=== PATIENT | female | born 1995 | race American Indian/Alaskan Native ===

== ENCOUNTER 2018-07-13 20:47 | Emergency (ER) | payer BC, OTHER ==
--- NOTE | 2018-07-13 21:47 | Emergency Department Report ---
Blank Doc - Documentation Documentation: This is a 22-year-old female that presents with rash with allergic reaction. Patient stated had hives and ZAYRA but is now resolving. Patient also has cough with sore throat. Exam: no hives present. No angioedema. Speaking in full sentences with no signs of distress noted. Uvula midline. No swelling. 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 This initial assessment/diagnostic orders/clinical plan/treatment(s) is/are subject to change based on patient's health status, clinical progression and re- assessment by fellow clinical providers in the ED. Further treatment and workup at subsequent clinical providers discretion. Patient/guardians urged not to elope from the ED as their condition may be serious if not clinically assessed and managed. Initial orders include: 1- Patient sent to [facility] for further evaluation and treatment
[2018-07-13 21:49] VITALS: BP 116/63
--- NOTE | 2018-07-13 22:42 | XRay Report ---
PROCEDURE: XR CHEST ROUTINE 2V TECHNIQUE: Chest radiograph, frontal and lateral views. HISTORY: cough COMPARISONS: None currently available. FINDINGS: Cardiac silhouette is within normal limits. There is no effusion. There is no pneumothorax. There is no consolidation. There are no suspicious osseous lesions. IMPRESSION: * No acute cardiopulmonary findings. This document is electronically signed by Cisco Rodarte MD., July 13 2018 10:40:17 PM ET
[2018-07-14] MEDS ORDERED: BENADRYL PO ONE (00:42)
[2018-07-14] MEDS ORDERED: DECADRON IM ONE (00:42)
[2018-07-14] MEDS ORDERED: IBUPROFEN PO ONE (00:42)
[2018-07-14] MEDS ORDERED: REGLAN PO ONE (00:42)
[2018-07-14] MEDS ORDERED: CLEOCIN PO ONE (00:45)
--- NOTE | 2018-07-14 00:49 | Emergency Department Report ---
ED General Adult HPI - General Chief complaint: Allergic Reaction Stated complaint: ALLERGIC REACTION/THROAT CLOSING Time Seen by Provider: 07/13/18 21:43 Source: patient Mode of arrival: Ambulatory Limitations: No Limitations - History of Present Illness Initial comments: pt presens for allergic reaction throat pain itching swelling bilat ear pain sore throat and productive cough. pt states "It feels like my throat is closing" there is no sob no wheezing no n/v Onset/Timin -: week(s) Location: face, chest Severity scale (0 -10): 3 Quality: burning, aching Consistency: constant Improves with: none Worsens with: none Associated Symptoms: cough, rash (hives ) Treatments Prior to Arrival: none - Related Data Previous Rx's Medication Instructions Recorded Last Taken Type Famotidine [Pepcid] 40 mg PO QDAY 6 Days #6 tablet 03/12/18 Unknown Rx diphenhydrAMINE [Benadryl CAP] 50 mg PO Q12H PRN #20 capsule 03/12/18 Unknown Rx methylPREDNISolone [Medrol Dose 4 mg PO DAILY #1 tab.ds.pk 03/12/18 Unknown Rx Castillo] Benzocaine/Menth/Cetylpyrd 1 each MM Q2H PRN #3 packet 07/14/18 Unknown Rx [Cepacol X Strength] Clindamycin [Clindamycin CAP] 300 mg PO Q8H 10 Days #30 cap 07/14/18 Unknown Rx Dexamethasone [Decadron] 4 mg PO BID 3 Days #6 tablet 07/14/18 Unknown Rx EPINEPHrine [Epipen 2-Castillo] 0.3 mg IJ PRN PRN #1 kit 07/14/18 Unknown Rx Ibuprofen 800 mg PO TID PRN #30 tablet 07/14/18 Unknown Rx Metoclopramide [Reglan] 10 mg PO Q6H PRN 7 Days #30 tablet 07/14/18 Unknown Rx diphenhydrAMINE [Benadryl CAP] 25 mg PO Q6HR PRN #30 capsule 07/14/18 Unknown Rx Allergies Allergy/AdvReac Type Severity Reaction Status Date / Time animal dander Allergy Unknown Verified 07/13/18 20:52 cefuroxime Allergy Hives Verified 07/13/18 21:45 dog dander Allergy Unknown Verified 07/13/18 20:52 famotidine Allergy Hives Verified 07/13/18 21:45 ED Review of Systems ROS: Stated complaint: ALLERGIC REACTION/THROAT CLOSING Other details as noted in HPI Constitutional: denies: chills, fever Eyes: denies: eye pain, eye discharge, vision change ENT: ear pain, throat pain, congestion Respiratory: cough. denies: shortness of breath, wheezing Cardiovascular: denies: chest pain, palpitations Endocrine: no symptoms reported Gastrointestinal: denies: abdominal pain, nausea, diarrhea Genitourinary: denies: urgency, dysuria, discharge Musculoskeletal: denies: back pain, joint swelling, arthralgia Skin: denies: rash, lesions Neurological: denies: headache, weakness, paresthesias Psychiatric: denies: anxiety, depression Hematological/Lymphatic: denies: easy bleeding, easy bruising ED Past Medical Hx - Surgical History Additional Surgical History: Laparoscopy - Social History Smoking Status: Never Smoker - Medications Home Medications: Home Medications Medication Instructions Recorded Confirmed Last Taken Type Famotidine [Pepcid] 40 mg PO QDAY 6 Days #6 tablet 03/12/18 Unknown Rx diphenhydrAMINE [Benadryl CAP] 50 mg PO Q12H PRN #20 capsule 03/12/18 Unknown Rx methylPREDNISolone [Medrol Dose 4 mg PO DAILY #1 tab.ds.pk 03/12/18 Unknown Rx Castillo] Benzocaine/Menth/Cetylpyrd 1 each MM Q2H PRN #3 packet 07/14/18 Unknown Rx [Cepacol X Strength] Clindamycin [Clindamycin CAP] 300 mg PO Q8H 10 Days #30 cap 07/14/18 Unknown Rx Dexamethasone [Decadron] 4 mg PO BID 3 Days #6 tablet 07/14/18 Unknown Rx EPINEPHrine [Epipen 2-Castillo] 0.3 mg IJ PRN PRN #1 kit 07/14/18 Unknown Rx Ibuprofen 800 mg PO TID PRN #30 tablet 07/14/18 Unknown Rx Metoclopramide [Reglan] 10 mg PO Q6H PRN 7 Days #30 tablet 07/14/18 Unknown Rx diphenhydrAMINE [Benadryl CAP] 25 mg PO Q6HR PRN #30 capsule 07/14/18 Unknown Rx ED Physical Exam - General Limitations: No Limitations General appearance: alert, in no apparent distress - Head Head exam: Present: atraumatic, normocephalic - Eye Eye exam: Present: normal appearance, PERRL, EOMI Pupils: Present: normal accommodation - ENT ENT exam: Present: normal exam, mucous membranes moist - Expanded ENT Exam Expanded Ear exam: Present: normal external inspection TM/Canal exam: Erythema: Right TM, Left TM, Canal Tenderness: Left TM Mouth exam: Present: normal external inspection. Absent: trismus Throat exam: Positive: tonsillar erythema, tonsillomegaly, other (uvula midline no stridor no exudate no lesion no wheezing ). Negative: tonsillar exudate, R peritonsillar mass, L peritonsillar mass - Neck Neck exam: Present: normal inspection, full ROM, lymphadenopathy. Absent: tenderness, meningismus, thyromegaly - Respiratory Respiratory exam: Absent: wheezes, stridor, chest wall tenderness, prolonged expiratory - Cardiovascular Cardiovascular Exam: Present: regular rate, normal rhythm, normal heart sounds. Absent: systolic murmur, diastolic murmur, rubs, gallop - GI/Abdominal GI/Abdominal exam: Present: soft. Absent: tenderness, rebound, normal bowel sounds, bruit, hernia - Rectal Rectal exam: Present: deferred - Extremities Exam Extremities exam: Present: normal inspection, full ROM, normal capillary refill. Absent: tenderness, pedal edema, joint swelling, calf tenderness - Back Exam Back exam: Present: normal inspection, full ROM. Absent: tenderness, CVA tenderness (R), CVA tenderness (L), muscle spasm, paraspinal tenderness, rash noted - Neurological Exam Neurological exam: Present: alert, oriented X3, CN II-XII intact, normal gait, reflexes normal - Psychiatric Psychiatric exam: Present: normal affect - Skin Skin exam: Present: warm, dry, intact, rash ED Course Vital Signs 07/13/18 21:47 Temperature 98.5 F Pulse Rate 68 Respiratory 18 Rate Blood Pressure 116/63 O2 Sat by Pulse 99 Oximetry ED Medical Decision Making - Radiology Data Radiology results: report reviewed, image reviewed Ordering Physician: MARYANN MUNOZ NP Date of Service: 07/13/18 Procedure(s): XR chest routine 2V Accession Number(s): [id number] cc: MARYANN MUNOZ NP Fluoro Time In Minutes: PROCEDURE: XR CHEST ROUTINE 2V TECHNIQUE: Chest radiograph, frontal and lateral views. HISTORY: cough COMPARISONS: None currently available. FINDINGS: Cardiac silhouette is within normal limits. There is no effusion. There is no pneumothorax. There is no consolidation. There are no suspicious osseous lesions. IMPRESSION: * No acute cardiopulmonary findings. This document is electronically signed by Cisco Lee MD., July 13 2018 10:40:17 PM ET Transcribed By: TYM Dictated By: CISCO LEE MD Electronically Authenticated By: CISCO LEE MD Signed Date/Time: 07/13/182241 DD/ 06 TD/TT: 07/13/182206 - Medical Decision Making this is aom with sinusititis, causing post nasal drip plan. clindamycin , decadron, ibuprofen, benadryl, reglan, cepacol lozenges, pt given epipen instructions will follow up with pcp and or return to ed if symptoms worsen. pt verbalized agreement and understanding of discharge plan, Critical care attestation.: If time is entered above; I have spent that time in minutes in the direct care of this critically ill patient, excluding procedure time. ED Disposition Clinical Impression: Allergy to antibacterial drug Sinusitis Qualifiers: Sinusitis location: maxillary Chronicity: acute Recurrence: recurrent Qualified Code(s): J01.01 - Acute recurrent maxillary sinusitis AOM (acute otitis media) Qualifiers: Otitis media type: serous Laterality: bilateral Recurrence: non-recurrent Qualified Code(s): H65.03 - Acute serous otitis media, bilateral Upper respiratory infection Qualifiers: URI type: unspecified viral URI Qualified Code(s): J06.9 - Acute upper respiratory infection, unspecified Disposition: - TO HOME OR SELFCARE Is pt being admited?: No Does the pt Need Aspirin: No Condition: Stable Instructions: Sinusitis (ED), Otitis Media (ED), Upper Respiratory Infection (ED), Antibiotic Medication Allergy (ED) Prescriptions: diphenhydrAMINE [Benadryl CAP] 25 mg PO Q6HR PRN #30 capsule PRN Reason: allergies Benzocaine/Menth/Cetylpyrd [Cepacol X Strength] 1 each MM Q2H PRN #3 packet PRN Reason: throat pain irritation Clindamycin [Clindamycin CAP] 300 mg PO Q8H 10 Days #30 cap Dexamethasone [Decadron] 4 mg PO BID 3 Days #6 tablet EPINEPHrine [Epipen 2-Castillo] 0.3 mg IJ PRN PRN #1 kit PRN Reason: severe allergy symptoms Ibuprofen 800 mg PO TID PRN #30 tablet PRN Reason: pain fever Metoclopramide [Reglan] 10 mg PO Q6H PRN 7 Days #30 tablet PRN Reason: allergies Referrals: WENDY BANGURA MD [Primary Care Provider] - 3-5 Days Forms: Work/School Release Form(ED)
== END 2018-07-14 02:21 | disposition home or self-care (01) ==
LOC: ED 20:47
DX: J01.01 Acute recurrent maxillary sinusitis (principal); H65.03 Acute serous otitis media, bilateral; J06.9 Acute upper respiratory infection, unspecified; Z88.1 Allergy status to other antibiotic agents
CPT/HCPCS: 71046; 96372; 99283; J1100

== ENCOUNTER 2019-02-17 03:34 | Emergency (ER) | payer OTHER ==
[2019-02-17] MEDS ORDERED: DEPO-Medrol IM ONE (08:29)
[2019-02-17] MEDS ORDERED: VISTARIL PO ONE (08:30)
[2019-02-17] MEDS ORDERED: PEPCID PO ONE (08:30)
--- NOTE | 2019-02-17 08:33 | Emergency Department Report ---
HPI - General Chief Complaint: Allergic Reaction Time Seen by Provider: 02/17/19 07:54 - HPI HPI: 23 yo comes to ER with a/c allergic reaction. 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 No new allergen. No sob or wheezing. 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 Has taken benadryl but all that does is cause her to be sleepy. ED Past Medical Hx - Past Medical History Previous Medical History?: Yes Additional medical history: chronic urticarial rash - Surgical History Past Surgical History?: Yes Additional Surgical History: Laparoscopy - Family History Family history: no significant - Social History Smoking Status: Never Smoker Substance Use Type: None - Medications Home Medications: Home Medications Medication Instructions Recorded Confirmed Last Taken Type Cetirizine HCl [ZyrTEC] 10 mg PO DAILY #30 capsule 02/17/19 Unknown Rx Famotidine [Pepcid] 20 mg PO DAILY #30 tablet 02/17/19 Unknown Rx hydrOXYzine PAMOATE [Vistaril] 25 mg PO Q6HR PRN #30 capsule 02/17/19 Unknown Rx predniSONE [Deltasone] 20 mg PO DAILY #5 tablet 02/17/19 Unknown Rx ED Review of Systems ROS: Stated complaint: POSS ALLERGIC REACTION Other details as noted in HPI Comment: All other systems reviewed and negative Physical Exam - Physical Exam Physical Exam: alert and oriented s1s2 lungs cta abd snt no cva tenderness generalized urticarial flat red rash; no oral or eye lesions; no systemic symp toms. ED Medical Decision Making - Medical Decision Making Vital Signs 02/17/19 02/17/19 03:45 09:41 Pulse Rate 93 H 88 Respiratory 16 16 Rate Blood Pressure 116/71 Blood Pressure 113/69 [Right] O2 Sat by Pulse 93 96 Oximetry mediated in ER educated on next steps. dc home with dc plan of care including additional referrals to derm/allergists. - Differential Diagnosis a/c rash Critical care attestation.: If time is entered above; I have spent that time in minutes in the direct care of this critically ill patient, excluding procedure time. ED Disposition Clinical Impression: Hives, Chronic urticaria Disposition: DC-01 TO HOME OR SELFCARE Is pt being admited?: No Does the pt Need Aspirin: No Condition: Stable Instructions: Urticaria (ED) Prescriptions: predniSONE [Deltasone] 20 mg PO DAILY #5 tablet Famotidine [Pepcid] 20 mg PO DAILY #30 tablet hydrOXYzine PAMOATE [Vistaril] 25 mg PO Q6HR PRN #30 capsule PRN Reason: Itching Cetirizine HCl [ZyrTEC] 10 mg PO DAILY #30 capsule Referrals: BHAVANA YUNG MD [Staff Physician] - 3-5 Days ROLAND WINSLOW MD [Staff Physician] - 3-5 Days Forms: Work/School Release Form(ED) Time of Disposition: 08:29
[2019-02-17 09:42] VITALS: BP 113/69
== END 2019-02-17 09:43 | disposition home or self-care (01) ==
LOC: ED 03:34
DX: L50.8 Other urticaria (principal); Z98.890 Other specified postprocedural states; Z91.048 Other nonmedicinal substance allergy status; Z88.1 Allergy status to other antibiotic agents; Z88.8 Allergy status to other drugs, medicaments and biological substances
CPT/HCPCS: 96372; 99282; J1040; Q0177